=== PATIENT | male | born 1985 | race African-American/Black ===

== ENCOUNTER 2016-12-20 23:13 | Emergency (ER) | payer OTHER ==
[~2016-12-20] VITALS: Ht 175.3 cm; Wt 112.9 kg
[~2016-12-20 23:13] MED LIST: ALBU8.5H3 IH; DULO30CA2 PO; FLUO20CA8 PO; HALO2TAB PO; HYDR-3008 PO; LISI10TA2 PO; METF500T4 PO; PARO20TA4 PO; PARO30TA3 PO; SERT25TA PO; TOPI25TA PO; TRAZ50TA18 PO
[2016-12-20] MEDS ORDERED: AUGMENTIN 875-125 TABLET ONE (23:36)
[2016-12-20] MEDS ORDERED: AUGMENTIN 500-125 TABLET PO STA (23:43)
--- NOTE | 2016-12-20 23:43 | ER.PDOC ---
General Chief Complaint: Extremities Stated Complaint: LAC Time seen by MD: 23:30 Source: patient, family Exam Limitations: no limitations History of Present Illness Initial Comments 31 year old black male with punctured wound right elbow. A piece of glass in his mother in law's house punctured the superficial part of his elbow with at least two inches of the glass went in. No bleeding. No limitation of rom. No significant pain. Tetanus shot was up to date. Occurred: just prior to arrival Recent Injury: Yes Where: home Severity: mild Exacerbated By: nothing 1 - 1 cm gaping non actively bleeding wound Allergies: Coded Allergies: Penicillins (Unverified Allergy, Unknown, 12/20/16) duloxetine (Verified Allergy, Unknown, TWITCHES, FORGETFULNESS, 12/20/16) iodine (Unverified Allergy, Unknown, 12/20/16) metoclopramide HCl (Unverified Allergy, Unknown, 12/20/16) Home Meds Reported Medications Albuterol Sulfate (PROAIR HFA) 8.5 Gm Hfa.aer.ad, 8.5 GM IH Q6 10/01/15 Metformin Hcl (METFORMIN HCL) 500 Mg Tablet, 500 MG PO DAILY, TABLET 10/01/15 Haloperidol (HALOPERIDOL) 2 Mg Tablet, 1 TAB PO HS, #30 TAB 10/01/15 Paroxetine Hcl (PAROXETINE HCL) 30 Mg Tablet, 1 TAB PO DAILY, #30 TAB 2 Refills 10/01/15 Lisinopril (LISINOPRIL) 10 Mg Tablet, 1 TAB PO DAILY, #30 TAB 5 Refills 10/01/15 Trazodone Hcl (TRAZODONE HCL) 50 Mg Tablet, 1 TAB PO HS, #30 TAB 12/03/14 Past Medical History Medical History: asthma, diabetes, GERD, hypertension Surgical History: cardiac cath, appendectomy, knee, tonsillectomy Social History Smoking: non-smoker Alcohol Use: none Drug Use: none Review of Systems Constitutional: denies no symptoms reported, denies see HPI, denies chills, denies diaphoresis, denies fever, denies malaise, denies weakness, denies other EENTM: denies no symptoms reported, denies see HPI, denies eye pain, denies blurred vision, denies tearing, denies double vision, denies ear pain, denies ear discharge, denies nose pain, denies nose congestion, denies throat pain, denies throat swelling, denies mouth pain, denies mouth swelling, denies other Respiratory: denies no symptoms reported, denies see HPI, denies cough, denies orthopnea, denies shortness of breath, denies stridor, denies wheezing, denies other Cardiovascular: denies no symptoms reported, denies see HPI, denies chest pain , denies edema, denies palpitations, denies syncope, denies other Gastrointestinal: denies no symptoms reported, denies see HPI, denies abdominal pain, denies constipation, denies diarrhea, denies nausea, denies vomiting, denies other Genitourinary: denies no symptoms reported, denies see HPI, denies discharge, denies dysuria, denies frequency, denies hematuria, denies pain, denies other Musculoskeletal: see HPI Skin: denies no symptoms reported, denies see HPI, denies change in color, denies change in hair/nails, denies dryness, denies lesions, denies lumps, denies rash, denies other Physical Exam General Appearance: alert, no distress Upper Extremity: non-tender, no edema, nml ROM, joints nml (small gaping wound right elbow area) Skin: color nml, warm/dry Vascular: no vascular compromise Neuro/Psych: sensation nml, motor nml Central Exam: oriented X3, CN's nml as tested, nml speech, nml cognition, nml mood/affect EENT: eyes nml inspection, ENT nml inspection, pharynx nml Neck/Back: nml inspection Respiratory: no resp distress, breath sounds nml CVS: reg rate & rhythm, heart sounds nml Abdomen: non-tender, no organomegaly, nml bowels sounds Progress Progress Wound was cleaned Sterile strips applied Departure Time of Disposition: 23:41 Disposition: 01 HOME, SELF-CARE Impression: Primary Impression: Puncture wound of upper arm Qualified Codes: S41.131A - Puncture wound without foreign body of right upper arm, initial encounter Referrals: MANISH NOVOA MD (PCP) PRIMARY CARE PROVIDER Additional Instructions: Augmentin 875 mg po bid for 7 days Watch for signs and symptoms of infection OTC pain meds prn Follow up PCP RTER prn LARA RAHMAN MD Dec 20, 2016 23:43
[2016-12-20] MEDS ORDERED: AUGMENTIN 875-125 TABLET PO STA (23:48)
--- NOTE | 2016-12-20 23:49 | NUR ---
wound care wound cleaned with hibiclens, dried, steri strips applied, pt ghislaine well
--- NOTE | 2016-12-20 23:49 | NUR ---
AUGMENTIN PT VERBALIZED THAT HE HAS TAKEN AUGMENTIN BEFORE WITH NO ADVERSE REACTIONS OR PROBLEMS
--- NOTE | 2016-12-21 00:01 | NUR ---
DISCHARGE DISCHARGE INSTRUCTIONS AND PRESCRIPTION MEDICATION DISCUSSED. PT VERBALIZED UNDERSTANDING. ENCOURAGED TO RETURN FOR ANY CONCERNS.
[2016-12-21 00:14] VITALS: BP 132/71
== END 2016-12-21 00:01 | disposition home or self-care (01) ==
LOC: ER 23:13
DX: S41.131A Puncture wound without foreign body of right upper arm, initial encounter (principal); E11.9 Type 2 diabetes mellitus without complications; K21.9 Gastro-esophageal reflux disease without esophagitis; I10 Essential (primary) hypertension; J45.909 Unspecified asthma, uncomplicated; Z88.0 Allergy status to penicillin; Z88.8 Allergy status to other drugs, medicaments and biological substances; W25.XXXA Contact with sharp glass, initial encounter; Y93.89 Activity, other specified; Y92.009 Unspecified place in unspecified non-institutional (private) residence as the place of occurrence of the external cause; Y99.8 Other external cause status
CPT/HCPCS: 99283